=== PATIENT | male | born 1965 ===

== ENCOUNTER → 2025-09-25 | Outpatient (CLI) | payer OTHER ==
[2025-09-25 19:30] LABS: Creatinine, Urine Random 315.0 mg/dL (27.00-270.00); Microalbumin, Random Urine 95.9 mg/L (0.000-20.000)
== END | disposition home or self-care (01) ==
LOC: LAB 12:31 → LAB SHORT 12:31
PROVIDERS: Nurse Practitioner Family
DX: E11.8 Type 2 diabetes mellitus with unspecified complications (principal)
CPT/HCPCS: 82043; 82570